=== PATIENT | male | born 1970 ===

== ENCOUNTER 2020-12-23 11:55 | Emergency (ER) | payer SELFPAY ==
[~2020-12-23] VITALS: Ht 172.7 cm; Wt 78.2 kg
[2020-12-23 12:03] VITALS: BP 135/87; Ht 172.7 cm; Wt 78.2 kg
== END 2020-12-23 13:38 | disposition home or self-care (01) ==
LOC: D.ER 11:55
DX: S52.202A Unspecified fracture of shaft of left ulna, initial encounter for closed fracture (principal); X58.XXXA Exposure to other specified factors, initial encounter